=== PATIENT | female | born 1990 | race Caucasian/White ===

== ENCOUNTER 2016-11-10 04:54 | Emergency (ER) | payer OTHER ==
[~2016-11-10] VITALS: Ht 172.7 cm; Wt 65.0 kg
[2016-11-10 04:57] VITALS: BP 119/77; PULSE 80; RESP 16; TEMP 98; O2SAT 100
[2016-11-10] MEDS ORDERED: MINO100 PO (05:08)
--- NOTE | 2016-11-10 05:08 | PD ---
HPI Chief Complaint: Allergic/Adverse Reaction Time Seen by Provider: 05:04 Travel History International Travel<30 days: No Contact w/Intl Traveler<30days: No Traveled to known affect area: No History of Present Illness HPI Healthy 26-year-old female here with complaint of lip swelling. Patient states that since yesterday she has had swelling to the right lower lip. This has gradually worsened. She has not had any posterior pharyngeal swelling, shortness of breath, wheezing, urticaria or GI discomfort. She takes minocycline and this was recently switched from tablets or capsules. She also is using new face wash. No known allergies. [facility] Past Medical History Medical History: Denies Significant Hx Social History Alcohol Use: No Tobacco Use: No Allergies-Medications (Allergen,Severity, Reaction): Coded Allergies: No Known Allergies (Unverified , 11/10/16) Review of Systems Except as stated in HPI: all other systems reviewed are Neg Physical Exam Narrative GENERAL: Well Appearing female in no acute distress SKIN: Focused skin assessment warm/dry. HEAD: Normocephalic. EYES: No scleral icterus. No injection or drainage. ENT: Mucous membranes pink and moist. Right lower lip swelling. No tongue swelling or posterior pharyngeal swelling. NECK: Supple without stridor CARDIOVASCULAR: Regular rate and rhythm. RESPIRATORY: No accessory muscle use. Clear to auscultation. Breath sounds equal bilaterally. MUSCULOSKELETAL: Normal gait NEUROLOGICAL: Awake and alert. Normal speech. PSYCHIATRIC: Appropriate mood and affect; insight and judgment normal. Data Data Last Documented VS Vital Signs Date Time Temp Pulse Resp B/P Pulse Ox O2 Delivery O2 Flow Rate FiO2 11/10/16 04:57 98.0 80 16 119/77 100 Room Air Orders Dexamethasone Inj (Decadron Inj) (11/10/16 05:15) [facility] Medical Decision Making Medical Screen Exam Complete: Yes Emergency Medical Condition: Yes Medical Record Reviewed: Yes Differential Diagnosis 26-year-old female here with lip swelling and possible allergic reaction. Differential includes allergic reaction, anaphylaxis, angioedema Narrative Course Patient given IM Decadron and discharged home with reassurance Diagnosis Primary Impression: Allergic reaction Qualified Code: T78.40XA - Allergic reaction, initial encounter Additional Impression: Swollen lip Referrals: Primary Care Physician as needed Additional Instructions: Benadryl as needed for itching, swelling Med/Other Pt SpecificInfo: No Change to Meds Disposition: 01 DISCHARGE HOME Condition: Stable Laura Myers MD Nov 10, 2016 05:07
[2016-11-10] MEDS ORDERED: DEXAMETHASONE SOD PHOS 20 MG/5 ML VIAL IM ONE (05:15)
== END 2016-11-10 05:40 | disposition home or self-care (01) ==
LOC: NEPE 04:54
DX: T78.40XA Allergy, unspecified, initial encounter (principal)
CPT/HCPCS: 96372; 99284; J1100